=== PATIENT | female | born 1990 | race Two or more races ===

== ENCOUNTER 2017-01-16 15:40 | Emergency (ER) | payer SELFPAY ==
--- NOTE | 2017-01-23 10:17 | ER ---
ADMIT: 01/16/2017 RM/LOC: ER [facility] MR#: [id number] [place], [place] [id number] PRIYANKA FRAZIER [address] [address] Emergency Room Report SEX: F AGE: 26 : 1990 DATE: 01/16/2017 HISTORY OF PRESENT ILLNESS: A 26-year-old presents to emergency room with abdominal pain. First, she says for 3 hours, has gotten the worse lower right abdomen. She is throwing up, last meal was at 10 this morning. She had some nausea and diarrhea as well. REVIEW OF SYSTEMS: Otherwise negative. 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 She has gone to [facility] for this and has some further evaluation to do. MEDICATIONS: See T-sheet. ALLERGIES: SEE T-SHEET. PHYSICAL EXAMINATION: GENERAL: Alert and oriented. Moderate anxious. VITAL SIGNS: Blood pressure 132/85 with a heart rate of 73, respirations 20, temp is 95.8. HEENT: Normal inspection. NECK: Supple. RESPIRATIONS: No distress. CVS: Tender in the right lower quadrant. ABDOMEN: Bowel sounds are normal. No organomegaly. BACK: Normal inspection. SKIN: Good color. EXTREMITIES: Well perfused. No edema. Oriented x4. Normal affect. LABORATORY DATA: We did do a renal colic CT due to blood 2+ and RBCs in the urine, thinking she may have had urinary stone. Apparently, the reading by Dr. Acharay is appendix is okay, ovarian cyst positive, unable to see if it is torsed or not. Because of how much pain she was having, I ordered an ultrasound to rule that out. They did see a mass that needs to be followed up in the right ovary. 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 Her CBC within ADMIT: 01/16/2017 RM/LOC: ER [facility] MR#: [id number] [place], [place] [id number] PRIYANKA FRAZIER [address] [facility] [address] [place] [address] Emergency Room Report SEX: F AGE: 26 : 1990 normal limits. Chemistry normal. Urinary test negative. Lipase 154, blood RBCs 20, and blood 2+ in the urine. CLINICAL IMPRESSION: 1. Ovarian cyst, right. 2. Right lower quadrant abdominal pain with nausea, vomiting, and diarrhea. PLAN: She was given a fluid bolus of normal saline 1 L, Zofran 4 mg IV, and ketorolac 30 mg, which was very helpful. I did send her home with a prescription of [place] and MiraLAX to prevent constipation. Follow up with [facility]FER[facility]PRETER for further studies on this right lower quadrant mass and assigned CONFERENCE INTERPRETER Dr. Butts. JESSI Meyer / Shen Garcia MD / rital JOB #: [id number] CC: Shen Garcia MD, Attending Physician Padmini Butts MD, Family Physician
== END 2017-01-16 20:40 | disposition home or self-care (01) ==
LOC: ER 15:40
DX: N83.201 Unspecified ovarian cyst, right side (principal)